=== PATIENT | male | born 1935 | race Caucasian/White ===

== ENCOUNTER 2022-04-19 02:54 | Inpatient (IN) | payer MEDICARE, OTHER ==
[~2022-04-19] VITALS: Ht 160 cm; Wt 42.2 kg
--- NOTE | 2022-04-19 03:08 | NUR ---
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 WAS JUST DC'D FROM [facility] YESTERDAY WAS ADMITTTED FOR 12DAYS. PATIENT IN BED 06 ON MONITOR AND POX AWAITING MD MONCADA.
--- NOTE | 2022-04-19 03:14 | NUR ---
BLOOD COLLECTED AND SENT TO LAB
--- NOTE | 2022-04-19 03:15 | NUR ---
COVID ANTIGEN DONE AND SENT TO LAB
--- NOTE | 2022-04-19 03:21 | NUR ---
MANAGER BOOK AT PT'S BEDSIDE
[2022-04-19 03:24] LABS: BASOPHILS # (AUTO) 0.1 K/uL (0.0-0.2); BASOPHILS % (AUTO) 0.6 % (0.0-2.0); EOSINOPHILS % (AUTO) 0.8 % (0.0-6.0); HEMATOCRIT 37 % (39-51); HEMOGLOBIN 11.3 g/dL (13.5-17.5); LYMPHOCYTES # (AUTO) 1.4 K/uL (0.8-4.8); LYMPHOCYTES % (AUTO) 13.4 % (20.0-44.0); MEAN CORPUSCULAR HGB CONC 31 g/dl (31.0-36.0); MEAN CORPUSCULAR VOLUME 80 fL (80-96); MONOCYTES # (AUTO) 0.9 K/uL (0.1-1.30); MONOCYTES % (AUTO) 8.3 % (2.0-12.0); NEUTROPHILS % (AUTO) 76.9 % (43.0-81.0); PLATELET COUNT (AUTO) 237 K/uL (150-450); WHITE BLOOD COUNT (AUTO) 10.4 K/uL (4.3-11.0)
[2022-04-19 03:28] LABS: CALCIUM, SERUM 9.4 mg/dL (8.5-10.1); CARBON DIOXIDE 30 mmol/L (21-32); CHLORIDE 95 mmol/L (98-107); CREATININE 0.7 mg/dL (0.6-1.3); GLUCOSE 157 mg/dL (74-106); POTASSIUM 3.9 mmol/L (3.5-5.1); SODIUM SERUM 133 mmol/L (136-145); UREA NITROGEN, BLOOD 16 mg/dL (7-18)
[2022-04-19 03:34] LABS: ALANINE AMINOTRANSFERASE 20 U/L (12-78); ALBUMIN 3.9 g/dL (3.4-5.0); ALKALINE PHOSPHATASE 63 U/L (46-116); ASPARTATE AMINOTRANSFERASE 33 U/L (15-37); BILIRUBIN,DIRECT 0.1 mg/dL (0.0-0.2); BILIRUBIN,TOTAL 0.2 mg/dL (0.2-1.0); TOTAL PROTEIN, SERUM 7.8 g/dL (6.4-8.2)
[2022-04-19] MEDS ORDERED: LIDOCAINE 1%-EPI 1:100,000 20 ML VIAL ONE (03:39)
[2022-04-19] MEDS ORDERED: MORPHINE SULFATE INJ 2 MG/ML DISP.SYRIN ONE (03:39)
--- NOTE | 2022-04-19 04:03 | NUR ---
COMPUTER SCIENCES PROFESSOR AT PT'S BEDSIDE FOR CHEST TUBE PLACEMENT
--- NOTE | 2022-04-19 04:03 | NUR ---
Note claudio in EDM - 04/19/22 at 0406 by CHAN LEFT CHEST TUBE INSERTION: PT SIGNED CONSENT FORM AND VERBALIZED UNDERSTANDING. DR. JOHAN GUZMAN AT PT'S BEDSIDE. 10FR PIGTAIL INSERTED TO LEFT CHEST; CONNECTED TO SUCTION. PT TOLERATED PROCEDURE WELL. VSS. SATTING 100% ON 5L SIMPLE MASK. WILL CONTINUE TO MONITOR.
--- NOTE | 2022-04-19 04:10 | NUR ---
MOVE SHEET SUBMITTED
--- NOTE | 2022-04-19 04:14 | NUR ---
ANA PAULA CALLED. UM NURSE DR FORMAN
[2022-04-19] MEDS ORDERED: MORPHINE SULFATE INJ 2 MG/ML DISP.SYRIN IV ONE (04:30)
[2022-04-19] MEDS ORDERED: IV NS 0.9% 500 ML BAG IV ONE (04:30)
--- NOTE | 2022-04-19 04:30 | NUR ---
DR. PRADO DO ON PHONECALL WITH YAA ZIMMERMAN [facility]
--- NOTE | 2022-04-19 04:33 | NUR ---
UPDATED RONN (SON) [phone] REGARDING PT'S CONDITION OF CHEST TUBE & ADMISSION
[2022-04-19] MEDS ORDERED: ACETAMINOPHEN 325 MG TABLET PO PRN ×2 (06:00→10:00)
[2022-04-19] MEDS ORDERED: ONDANSETRON HCL/PF 4 MG/2 ML VIAL IVP PRN (06:00)
[2022-04-19] MEDS ORDERED: CELE100C98 PO (07:05)
[2022-04-19] MEDS ORDERED: FLUT1BLS INH (07:05)
[2022-04-19] MEDS ORDERED: OMEP40CA21 PO (07:05)
[2022-04-19] MEDS ORDERED: METO25TA20 PO (07:05)
[2022-04-19] MEDS ORDERED: GENTAMICIN OPTH SOLN 0.3% 5 ML BOTTLE ONE (07:47)
[2022-04-19] MEDS ORDERED: FERR324T PO (08:07)
[2022-04-19] MEDS ORDERED: ALBU8.5H8 INH (08:07)
[2022-04-19] MEDS ORDERED: ACET325T53 PO (08:07)
--- NOTE | 2022-04-19 08:10 | NUR ---
report given to sherin acharya for tadeo
--- NOTE | 2022-04-19 08:39 | NUR ---
wheeled patient via gurney accompanied by RN and emt in no distress. RN assigned at bedside to assume care.
[2022-04-19 09:04] VITALS: BP 116/66
--- NOTE | 2022-04-19 09:30 | NUR ---
telephone information clerk note dr martínez at bedside notified that in in water seal chamber noted bubbling as liking indicated dr martínez stated that thoracic surgeon will come to see will f\u
--- NOTE | 2022-04-19 09:30 | NUR ---
supervisor television chassis repair note received patient from er with dx lt pneumothorax under care dr Valdez rn casino porter with chest tube to suction -20 on ivf as ordered lt ac hl intact and flushed well bed in lowest and [id number] position dr martínez at bedside notified that c\o pain ,Vicodin ordered will f]x vs take belonging checked by six pack loader operator will monitor safety measure provided
[2022-04-19] MEDS: IV NS 0.9% 1,000 ML IV PRN ×2 (10:03→22:45)
[2022-04-19] MEDS ORDERED: ALBUTEROL FS 2.5 MG/0.5 ML VIAL.NEB NEB PRN (10:30)
[2022-04-19] MEDS: HYDROCODONE/APAP 5/325MG TABLET PO PRN (10:44)
[2022-04-19] MEDS: PANTOPRAZOLE 40 MG TABLET.DR PO SCH (10:46)
--- NOTE | 2022-04-19 11:30 | NUR ---
BUSINESS UNIT MANAGER NOTE RT AT BEDSIDE CHANGED TO 4L NC BY RT SATURATION 98% Addendum: 04/19/22 at 1155 by BI LONGORIA RN ALL NEEDS ATTENDED FAMILY AT BEDSIDE
[2022-04-19 12:00] VITALS: BP 104/54
--- NOTE | 2022-04-19 14:49 | NUR ---
DIRECTOR DERMATOLOGY NOTE ALL NEEDS ATTENDED WILL CONT TO MONITOR NO SOB NOTED AT THIS TIME
[2022-04-19] MEDS ORDERED: PNEUMOCOCCAL 23-VAL P-SAC VAC 0.5 ML VIAL SQ ONE (15:30)
--- NOTE | 2022-04-19 15:38 | NUR ---
telecommunications equipment installer note dr hollis thoracic surgeon at beside and check chest tube aware that water seal with bubbling and leakage stated that will check chest x ray tomorrow also changed chest tube setting to suction- 20 h20 cm suction, will monitor
[2022-04-19 16:00] VITALS: BP 110/55
--- NOTE | 2022-04-19 17:38 | NUR ---
television maintenance worker note called to radiology about ct chest stated that will be done about 9 pm, will f\u
--- NOTE | 2022-04-19 18:26 | NUR ---
ROAD TESTER NOTE RESTING IN BED, ALERT ORIENTED, ON 4 L NC ,NO SOB NOTED AT THIS TIME , WITH CHEST TUBE TO SUCTION -10 CM H20 , WITH SMALL AMT SEROUS DRAINAGE NOTED , ON IVF ORDERED, NOT IN DISTRESS, CALL LIGHT WITHIN REACH , SAFETY FALL PRECAUTION IN PLACE , WILL CONT TO MONITOR CLOSELY
[2022-04-19 20:00] VITALS: BP 107/52
--- NOTE | 2022-04-19 20:21 | NUR ---
CORRUGATOR SUPERVISOR OPENING NOTES: RECEIVED PATIENT SLEEP IN BED AROUSABLE TO VERBAL STIMULI, BED IN LOW POSITION, CALL LIGHTS WITHIN REACH, NO COMPLAIN OF PAIN AND DISCOMFORT AT THIS TIME, ON O2 INHALATION AT 4LPM SATURATING WELL, WITH IIV LINE AT LAC#18 WITH ONGOING NSS@ 75ML/HR INFUSING WELL, LEFT PIGTAIL TO CLOSE CONTAINER BASELINE AT 5ML, WITH BUBBLING AM DR WAS MADE AWARE,ON TELE [id number], TO REMAIN BEDREST, PATIENT KEPT CLEAN AND DRY ALL NEEDS MET ENDORSE TO INCOMING SHIFT.
[2022-04-20] VITALS: BP 115/47
[2022-04-20 04:00] VITALS: BP 114/48
--- NOTE | 2022-04-20 06:40 | NUR ---
5542 Reported by RN Mike that patient's chest tube got pulled out. Assessed patient immediately and he's awake and verbally responsive. Denies shortness of breath or difficulty breathing. O2 saturation noted at 100%. HOB elevated for maximum oxygenation. Dr. Helton was paged. Awaiting call back.
--- NOTE | 2022-04-20 06:45 | NUR ---
0645 Called radiology dept for stat chest xray.
--- NOTE | 2022-04-20 07:01 | NUR ---
ALARM INSTALLATION TECHNICIAN CLOSING NOTES: 117-1 [place] PATIENT SLEEP IN BED COMFORTABLY, BED IN LOW POSITION CALL LIGHTS WITHIN REACH, NO COMPLAIN OF PAIN AND DISCOMFORT AT THIS TIME, ON O2 INHALATION AT 4LPM SATURATING WELL, PATIENT ON TELE [id number], WITH IV LINE AT LAC#18 WITH ONGOING NSS@75ML/HR INFUSING WELL, PATIENT WITH LEFT LATERAL ABDOMEN PIGTAIL TO CHEST TUBE CONTAINER WAS DETACHED CHARGE NURSE MADE AWARE, NOTIFY DR GUERRIER AWAITING FOR REPLY AT-PATIENT KEPT CLEAN AND DRY ALL NEEDS MET ENDORSE TO INCOMING SHIFT.
--- NOTE | 2022-04-20 07:01 | NUR ---
RN NOTES: PATIENT WAS NOTED WITH REMOVED ABDOMINAL PIGTAIL TO CHEST WALL AT AROUND 0630, AT AROUND 0510 AM DURING PATIENT CLEANING PIGTAIL REMAINS INTACT, CHARGE NURSE MADE AWARE AND NOTIFY DR GUERRIER AWAITING FOR REPLY, , ORDERED STAT CXR, VITALS REMAIN STABLE O2 SATURATION AT 100 ON 4LPM, WILL CONTINUE TO MONITOR
--- NOTE | 2022-04-20 07:10 | NUR ---
0710 Re assessed patient, awake and verbally responsive. Cont to deny shortness of breath and difficulty breathing. O2 sat 100%. HOB for max oxygenation. Still waiting for Dr. Helton to call back. Patient is being closely monitored.
--- NOTE | 2022-04-20 07:15 | NUR ---
0715 Call radiology to follow up on chest xray. They are on the way. Endorsed to AM charge nurse for continuity of care.
[2022-04-20 07:21] LABS: BASOPHILS % (AUTO) 0.4 % (0.0-2.0); EOSINOPHILS % (AUTO) 3.3 % (0.0-6.0); HEMATOCRIT 35 % (39-51); HEMOGLOBIN 10.4 g/dL (13.5-17.5); LYMPHOCYTES # (AUTO) 0.4 K/uL (0.8-4.8); LYMPHOCYTES % (AUTO) 7.8 % (20.0-44.0); MEAN CORPUSCULAR HGB CONC 30 g/dl (31.0-36.0); MEAN CORPUSCULAR VOLUME 81 fL (80-96); MONOCYTES # (AUTO) 0.5 K/uL (0.1-1.30); MONOCYTES % (AUTO) 9.8 % (2.0-12.0); NEUTROPHILS # (AUTO) 4.2 K/uL (1.8-8.9); NEUTROPHILS % (AUTO) 78.7 % (43.0-81.0); PLATELET COUNT (AUTO) 183 K/uL (150-450); RED BLOOD CELL COUNT(AUTO) 4.32 MIL/uL (4.5-6.0); WHITE BLOOD COUNT (AUTO) 5.4 K/uL (4.3-11.0)
[2022-04-20 07:25] LABS: CALCIUM, SERUM 8.7 mg/dL (8.5-10.1); CARBON DIOXIDE 30 mmol/L (21-32); CHLORIDE 101 mmol/L (98-107); CREATININE 0.4 mg/dL (0.6-1.3); GLUCOSE 101 mg/dL (74-106); MAGNESIUM 2.2 mg/dL (1.8-2.4); PHOSPHORUS 3.6 mg/dL (2.5-4.9); POTASSIUM 4.2 mmol/L (3.5-5.1); SODIUM SERUM 134 mmol/L (136-145); UREA NITROGEN, BLOOD 11 mg/dL (7-18)
[2022-04-20 07:32] LABS: CHOLESTEROL 135 mg/dL (<200); HDL CHOLESTEROL 41 mg/dL (40-60); LDL 79 mg/dL (0-99); TRIGLYCERIDES 61 mg/dL (30-150)
--- NOTE | 2022-04-20 07:54 | NUR ---
AUDIT PRACTICE INTERN OPENING NOTE PATIENT IS AWAKE IN BED. PATIENT IS ALERT AND ORIENTED X3. PATIENT IS ON 4L O2 VIA NASAL CANNULA. PATIENT IS ON TELE MONITOR. PATIENT HAS LEFT PIGTAIL CHEST TUBE TO CONTAINER. PER REPORT FROM LEAF SORTER NURSE. PATIENT PULLED OUT PIGTAIL. CHARGE NURSE NOTIFIED. CHEST XRAY DONE. WILL FOLLWUP. PATIENT HAS NO COMPLAINTS OF PAIN OR DISCOMFORT AT THIS TIME. ALL SAFETY MEASURES IN PLACE. CALL LIGHT WITHIN REACH. BED LOCKED IN LOWEST POSITION.SIDE RAILS UP X2. WILL CONTINUE TO ASSESS THROUGHOUT SHIFT.
[2022-04-20 08:00] VITALS: BP 113/48
--- NOTE | 2022-04-20 08:05 | NUR ---
telemarketer supervisor note dr martínez notified that pigtail \chest tube came put at 0630 ,patent not in distress ,saturation 100% , no sob noted at this time, dr martínez ordered ct chest no contrast, order carried out chest xray reported to dr martínez
[2022-04-20] MEDS: PANTOPRAZOLE 40 MG TABLET.DR PO SCH (09:07)
--- NOTE | 2022-04-20 10:41 | NUR ---
agent telegrapher note rounds made all needs attended ,no sob noted on 4l nc, saturation 100%
[2022-04-20 12:00] VITALS: BP 91/48
[2022-04-20] MEDS: FERROUS SULFATE (325 MG) 325 MG/TAB TABLET PO SCH (12:53)
--- NOTE | 2022-04-20 12:58 | NUR ---
telephone plant power operator note ct chest done as ordered will f\u
--- NOTE | 2022-04-20 14:18 | NUR ---
tele marketing executive note called to radiology x2 about ct chest result, no e result available yet , stated that will f\u
--- NOTE | 2022-04-20 15:21 | NUR ---
manager telemetry note notified about result of ct chest xray. patient has no sob. patient 96% saturation on 4L nasal canula. Addendum: 04/20/22 at 1537 by BI LONGORIA RN non new order at this time due to ct chest result per dr martínez
[2022-04-20 16:23] VITALS: BP 103/50
[2022-04-20] MEDS: IV NS 0.9% 1,000 ML IV PRN (17:41)
--- NOTE | 2022-04-20 18:34 | NUR ---
SENIOR GIS ANALYST NOTE PATIENT IN BED, ALERT ORIENTED , ON 4L NC, NO SOB NOTED AT THIS TIME ,HAVING DINNER , ABLE TO EAT SELF , BED IN LOWEST AND LOCKED POSITION, NO SOB NOTED, RESPIRATION EVEN AND NONLABORED ,SATURATING 98% AT THIS TIME , CALL LIGHT WITHIN REACH SAFETY MEASURE OBSERVED Addendum: 04/20/22 at 1907 by BI LONGORIA RN PATIENT ON 2L NC AT THIS TIME NO SOB AT THIS TIME
--- NOTE | 2022-04-20 19:00 | NUR ---
RN opening notes Received Pt from morning nurse. Pt is sitting in the bed comfortably accompanied by Pt's son in law Mcrae. Pt is alert and orientedX3. Pt speaks Guamanian and able to make needs known. On 2 L NC. No SOB. No S/S of distress noted. No chest tube. Per am nurse Pt removed chest tube in the morning. MD is aware and informed. No S/S of distress noted. O2 sat is 96%. Tele monitor showed SR hr at 71. IV site at LAC# 18 is clean, intact and infusing well NS@ 75 ml/hr. Safety precautions is maintained. Bed at low position, brakes locked, side rails upX3, hob elevated, bed alarm is on and call light is within reach. Will continue to monitor.
--- NOTE | 2022-04-20 19:05 | NUR ---
RN notes L lateral dressing (from detached chest tube) is clean, intact and dry. No S/S of distress or No SOB notes.
[2022-04-20 20:00] VITALS: BP_SYST 145; BP_SYST 97; BP_DIAS 49; BP_DIAS 77
[2022-04-21] VITALS: BP 105/56
[2022-04-21 04:00] VITALS: BP 103/44
[2022-04-21] MEDS: IV NS 0.9% 1,000 ML IV PRN (06:19)
[2022-04-21] MEDS: PANTOPRAZOLE 40 MG TABLET.DR PO SCH (06:34)
--- NOTE | 2022-04-21 06:39 | NUR ---
RN closing notes Pt resting in bed comfortably. Pt is alert and orientedX3. Pt speaks Sammarinese and able to make needs known. On 2 L NC. No SOB. No No S/S of distress noted. O2 sat is 100%. Tele monitor showed SR hr at 81. IV site at LAC# 18 is clean, intact and infusing well NS@ 75 ml/hr. L lateral chest dressing is intact, clean and dry. Kept Pt clean, dry and comfortable. Safety precautions is maintained. Bed at low position, brakes locked, side rails upX3, hob elevated, bed alarm is on and call light is within reach. Will endorse to am nurse for TULIO.
[2022-04-21 07:00] LABS: BASOPHILS % (AUTO) 0.7 % (0.0-2.0); EOSINOPHILS % (AUTO) 3.7 % (0.0-6.0); HEMATOCRIT 32 % (39-51); HEMOGLOBIN 9.9 g/dL (13.5-17.5); LYMPHOCYTES # (AUTO) 0.6 K/uL (0.8-4.8); LYMPHOCYTES % (AUTO) 12.9 % (20.0-44.0); MEAN CORPUSCULAR HGB CONC 31 g/dl (31.0-36.0); MEAN CORPUSCULAR VOLUME 80 fL (80-96); MONOCYTES # (AUTO) 0.4 K/uL (0.1-1.30); NEUTROPHILS # (AUTO) 3.7 K/uL (1.8-8.9); NEUTROPHILS % (AUTO) 73.7 % (43.0-81.0); PLATELET COUNT (AUTO) 190 K/uL (150-450); RED BLOOD CELL COUNT(AUTO) 3.97 MIL/uL (4.5-6.0)
--- NOTE | 2022-04-21 07:00 | NUR ---
FOCUS PULLER OPENING NOTES. PATIENT AWAKE AND ALERT A&0X4 COLOMBIAN SPEAKING. ALL VSS. PATIENT SATTING AT 100% ON 2.5 NC. IV 18G ON L AC PATENT, INTACT AND FLUSHED. DIET CARDIAC LOW FAT. PATIENT ON MONITOR AND SPO2 MONITOR. PATIENT VOIDING INCONTINENT. PATIENT REMOVED CHEST TUBE YESTERDAY ORDERS TO CONTINUE MONITORING FOR NOW WITH FOLLOW UP CHEST X-RAY. ALL SAFETY FALL PRECAUTIONS IN PLACE BED IN LOWEST POSITION, SIDE RAILS UP, BED LOCK ON BED ALARM ON, CALL LIGHT WITHIN REACH. WILL CONTINUE TO MONITOR.
[2022-04-21 07:21] LABS: CALCIUM, SERUM 8.4 mg/dL (8.5-10.1); CARBON DIOXIDE 32 mmol/L (21-32); CHLORIDE 102 mmol/L (98-107); CREATININE 0.3 mg/dL (0.6-1.3); GLUCOSE 101 mg/dL (74-106); POTASSIUM 3.9 mmol/L (3.5-5.1); SODIUM SERUM 137 mmol/L (136-145); UREA NITROGEN, BLOOD 9 mg/dL (7-18)
--- NOTE | 2022-04-21 08:30 | NUR ---
WELDING MACHINE TENDER NOTE. PATIENT WAS CHANGED AND CLEANED LINEN WAS CHANGED. PATIENT RESTING COMFORTABLY ON THE BED HAVING BREAKFAST. ALL SAFETY FALL PRECAUTIONS IN PLACE. WILL CONTINUE TO MONITOR.
[2022-04-21] MEDS: FERROUS SULFATE (325 MG) 325 MG/TAB TABLET PO SCH (09:01)
--- NOTE | 2022-04-21 09:30 | NUR ---
MD VISIT BY DR. JUICE ORNELAS. PATIENT DOING WELL AND MAY GO HOME SOON. FAMILY EVOLVEMENT NEEDED PATIENT VERY FRAIL. DAUGHTER AND SON IN-[place] ARE READY TO HELP.
--- NOTE | 2022-04-21 18:51 | NUR ---
RN CLOSING NOTES. PATIENT RESTING COMFORTABLY ON BED. ALERT AND AWAKE A&OX4. ALL VSS. PATIENT SATTING AT 100% ON 2.5 L NC. SR ON MONITOR. NO CURRENT SIGNS OF DISTRESS. IV LAC 18G PATENT, INTACT AND FLUSHED RUNNING NS 0.9% NS @75MLS/HR. DIET CARDIAC. SAFETY FALL PRECAUTIONS IN PLACE BED IN LOWEST POSITION, SIDE RAILS UP, BED LOCK ON, BED ALARM ON, CALL LIGHT WITHIN REACH.
--- NOTE | 2022-04-21 19:45 | NUR ---
RN NOTE RECEIVED PT IN BED, WITH FAMILY AT BEDSIDE. PT ON 2.5L O2 VIA NC, O2 SAT AT 99-100%. NOT IN ANY DISTRESS. PT DENIES PAIN OR SOB. SR ON TELE MONITOR WITH HR 63. ON IVF NS AT 75ML/HR, INFUSING WELL. WILL CONTINUE TO MONITOR.
[2022-04-21 20:00] VITALS: BP 115/53
[2022-04-22] VITALS: BP 116/52
[2022-04-22] MEDS: HYDROCODONE/APAP 5/325MG TABLET PO PRN (01:26)
[2022-04-22 04:00] VITALS: BP 148/56
--- NOTE | 2022-04-22 06:55 | NUR ---
RN NOTE PT SLEEPING, AROUSES EASILY. NO SIGNIFICANT CHANGES NOTED. TITRATED O2 TO 2L VIA NC. TOLERATES WELL. NOT IN ANY DISTRESS. DENIES ANY SOB OR PAIN. LAC IV LEAKING, NEW IV LINE INSERTED ON LFA 22G, GOOD BLOOD RETURN, FLUSHES WELL. CONTINUE WITH NS AT 75ML/HR. ALL NEEDS ATTENDED. WILL ENDORSE TO NEXT SHIFT NURSE FOR TULIO.
[2022-04-22 08:00] VITALS: BP 117/45
[2022-04-22] MEDS: FERROUS SULFATE (325 MG) 325 MG/TAB TABLET PO SCH (08:03)
[2022-04-22] MEDS: PANTOPRAZOLE 40 MG TABLET.DR PO SCH (08:03)
--- NOTE | 2022-04-22 08:08 | NUR ---
BALL FRINGE MACHINE OPERATOR OPENING NOTE PATIENT AWAKE, ALERT AND ORIENTED X4. BAHRAINI SPEAKING.PATIENT OXYGEN SATURATION 99% ON 2L VIA NASAL CANNULA. PATIENT HAS OLD CHEST TUBE SITE ON LEFT SIDE OF CHEST. PATIENT ON CARDIAC DIET.SKIN INTACT.NORMAL SALINE AT 75ML/HR.ALL SAFETY FALL PRECAUTIONS IN PLACE BED IN LOWEST POSITION, SIDE RAILS UP, BED LOCKED, CALL LIGHT WITHIN REACH. WILL CONTINUE TO ASSESS THROUGHOUT SHIFT
[2022-04-22] MEDS: IV NS 0.9% 1,000 ML IV PRN (09:21)
[2022-04-22 12:00] VITALS: BP 101/46
--- NOTE | 2022-04-22 13:04 | NUR ---
dario acharya note patient daughter at bedside Addendum: 04/22/22 at 1911 by MIO HUTCHINS RN ever at bedside
[2022-04-22 16:00] VITALS: BP 108/51
--- NOTE | 2022-04-22 19:11 | NUR ---
clerk telegraph service closing note PATIENT REMAINS IN BED. PATIENT IS RESTING COMFORTABLY. NO SIGNS OF DISTRESS. PATIENT IS ON 96% VIA 2-2.5L NASAL CANNULA. PATIENT IS ALERT AND ORIENTED X4. CITIZEN OF [place] SPEAKING ONLY. PATIENT IS ON TELE MONITOR CURRENTLY SINUS RHYTHM 60-90S.PATIENT HAS OLD CHEST TUBE SIDE ON LEFT LATERAL CHEST. PATIENT COMPLAINS OF NO PAIN. PATIENT ON CARDIAC DIET. PATIENT HAS LEFT FOREARM 22 GAUGE. IV PATENT AND FLUSHING WELL. CURRENTLY RUNNING NORMAL SALINE @ 75ML/HR.PATIENT HAS DIAPER. KEPT CLEAN AND DRY. ALL SAFETY MEASURES IN PLACE. BED LOCKED IN LOWEST POSITION. CALL LIGHT WITHIN REACH. BEDSIDE TABLE NEXT TO PATIENT.
--- NOTE | 2022-04-22 19:45 | NUR ---
PROTOTYPE FABRICATOR OPENING NOTES RECEIVED PATIENT IN BED. PATIENT IS RESTING COMFORTABLY. NO SIGNS OF DISTRESS. PATIENT IS ON O2 VIA NASAL CANNULA 2LPM. PATIENT IS ALERT AND ORIENTED X4. MOHAWK SPEAKING ONLY. PATIENT IS ON TELE MONITOR CURRENTLY SINUS RHYTHM 60-90S.PATIENT HAS OLD CHEST TUBE SIDE ON LEFT LATERAL CHEST. PATIENT COMPLAINS OF NO PAIN. PATIENT HAS LEFT FOREARM 22 GAUGE. IV PATENT AND FLUSHING WELL. CURRENTLY RUNNING NORMAL SALINE @ 75ML/HR.FAMLIY ON BEDSIDE. ALL SAFETY MEASURES IN PLACE. BED LOCKED IN LOWEST POSITION. CALL LIGHT WITHIN REACH. WILL CONTINUE TO MONITOR THROUGHOUT THE SHIFT.
--- NOTE | 2022-04-22 19:51 | NUR ---
RT RECEIVED PT ON 1LNC, SAT 97%. NO RESP DISTRESS OR SOB. HR 76, TOLERATING WELL. Addendum: 04/22/22 at 1953 by Jerzy Hung RT Amended: Links added.
[2022-04-22 20:00] VITALS: BP 119/59
[2022-04-23] VITALS: BP 99/45
[2022-04-23] MEDS: IV NS 0.9% 1,000 ML IV PRN ×2 (01:14→22:00)
[2022-04-23 04:00] VITALS: BP 123/65
--- NOTE | 2022-04-23 07:28 | NUR ---
EDGE DRUMMER OPENING NOTES PATIENT REMAINS IN BED RESTING COMFORTABLY. NO SIGNS OF DISTRESS. PATIENT IS ON O2 VIA NASAL CANNULA 2LPM. PATIENT IS ALERT AND ORIENTED X4. CYMRO SPEAKING ONLY. PATIENT IS ON TELE MONITOR CURRENTLY SINUS RHYTHM 60-90S.PATIENT HAS OLD CHEST TUBE SIDE ON LEFT LATERAL CHEST. PATIENT COMPLAINS OF NO PAIN. PATIENT HAS LEFT FOREARM 22 GAUGE. IV PATENT AND FLUSHING WELL. CURRENTLY RUNNING NORMAL SALINE @ 75ML/HR. ALL SAFETY MEASURES IN PLACE. ALL NEEDS ATTENDED, BED LOCKED IN LOWEST POSITION. CALL LIGHT WITHIN REACH. WILL ENDORSE TO AM SHIFT NURSE.
--- NOTE | 2022-04-23 07:30 | NUR ---
SECURITY OFFICER SUPERVISOR OPENING NOTE PATIENT AWAKE, ALERT AND ORIENTED X4. QATARI SPEAKING.PATIENT OXYGEN SATURATION 99% ON 2L VIA NASAL CANNULA. PATIENT HAS OLD CHEST TUBE SITE ON LEFT SIDE OF CHEST. PATIENT ON CARDIAC DIET.SKIN INTACT.IV SITE PATENT AND FLUSHING WELL. PATIENT HAS LOW URINE OUTPUT. NORMAL SALINE AT 75ML/HR.ALL SAFETY FALL PRECAUTIONS IN PLACE BED IN LOWEST POSITION, SIDE RAILS UP, BED LOCKED, CALL LIGHT WITHIN REACH. WILL CONTINUE TO ASSESS THROUGHOUT SHIFT
[2022-04-23] MEDS: PANTOPRAZOLE 40 MG TABLET.DR PO SCH (07:42)
[2022-04-23 08:00] VITALS: BP 108/54
[2022-04-23] MEDS: FERROUS SULFATE (325 MG) 325 MG/TAB TABLET PO SCH (08:51)
--- NOTE | 2022-04-23 11:00 | NUR ---
PEDIATRIC PATHOLOGIST NOTE PATIENT COMPLAINING OF LOW URINE OUTPUT, PAIN,BURNING WHILE URINATING. DID BLADDER SCANNER AND IT WAS 200 ML. NOTIFIED MADE AWARE. WILL FOLLOW UP
[2022-04-23 12:00] VITALS: BP 118/63
--- NOTE | 2022-04-23 14:47 | NUR ---
SEARCH CONSULTANT NOTE FAMILY AT BEDSIDE
--- NOTE | 2022-04-23 14:51 | NUR ---
FAMILY AT BEDSIDE
[2022-04-23 16:00] VITALS: BP 102/59
[2022-04-23] MEDS: HYDROCODONE/APAP 5/325MG TABLET PO PRN (18:53)
--- NOTE | 2022-04-23 19:27 | NUR ---
FAMILY AT BEDSIDE
--- NOTE | 2022-04-23 19:27 | NUR ---
PUBLIC SAFETY TELECOMMUNICATOR CLOSING NOTE PATIENT AWAKE, ALERT AND ORIENTED X4. DANISH SPEAKING.ABLE TO MAKE NEEDS KNOWN.PATIENT OXYGEN SATURATION ABOVE 95% ON 2L VIA NASAL CANNULA. TOLERATING WELL.PATIENT IS ON TELE MONITOR CURRENTLY SINUS RHYTHM.PATIENT HAS OLD CHEST TUBE SITE ON LEFT SIDE OF CHEST. PATIENT ON CARDIAC DIET.SKIN INTACT.IV SITE PATENT AND FLUSHING WELL. PATIENT HAS LOW URINE OUTPUT. NORMAL SALINE AT 75ML/HR.PATIENT HAS LEFT FOREARM 22 GAUGE. ALL SAFETY MEASURES IN PLACE. BED LOCKED IN LOWEST POSITION, SIDE RAILS UP, BED LOCKED, CALL LIGHT WITHIN REACH.
--- NOTE | 2022-04-23 19:30 | NUR ---
INSPECTOR PAPER PRODUCTS OPENING NOTES RECEIVED PATIENT IN BED. A/O X4, SAMI SPEAKING ONLY. NO SIGNS OF DISTRESS. PATIENT IS ON O2 VIA NASAL CANNULA 2LPM. PATIENT IS ON TELE MONITOR CURRENTLY SINUS RHYTHM. PATIENT HAS OLD CHEST TUBE SIDE ON LEFT LATERAL CHEST. NO COMPLAINTS OF PAIN AT THIS TIME. PATIENT HAS LEFT FOREARM 22 GAUGE RUNNING NS @ 75ML/HR. FAMILY ON BEDSIDE. ALL SAFETY MEASURES IN PLACE. BED LOCKED AND IN LOWEST POSITION. CALL LIGHT WITHIN REACH. WILL CONTINUE TO MONITOR THROUGHOUT THE SHIFT.
[2022-04-23 20:00] VITALS: BP 103/48
[2022-04-24] VITALS: BP 115/55
[2022-04-24 04:00] VITALS: BP 120/52
--- NOTE | 2022-04-24 06:45 | NUR ---
FINE GRADER CLOSING NOTES PATIENT REMAINS IN BED RESTING COMFORTABLY. NO SIGNS OF DISTRESS. PATIENT IS ON O2 VIA NASAL CANNULA 2LPM. PATIENT IS ALERT AND ORIENTED X4. MONTSERRATIAN SPEAKING ONLY. PATIENT IS ON TELE MONITOR CURRENTLY SINUS RHYTHM 68 BPM.PATIENT HAS OLD CHEST TUBE SIDE ON LEFT LATERAL CHEST. PATIENT HAS LEFT FOREARM 22 GAUGE. IV PATENT AND FLUSHING WELL. CURRENTLY RUNNING NORMAL SALINE @ 75ML/HR. ALL SAFETY MEASURES IN PLACE. ALL NEEDS ATTENDED, KEPT DRY AND CLEAN, BED LOCKED IN LOWEST POSITION. CALL LIGHT WITHIN REACH. WILL ENDORSE TO AM SHIFT NURSE.
--- NOTE | 2022-04-24 07:29 | NUR ---
CLOCKMAKER APPRENTICE OPENING NOTES RECEIVED PT IN BED AWAKE EATING BREAKFAST. PT A/O X4, LIBYAN SPEAKING. ABLE TO MAKE NEEDS KNOWN. ON O2 AT 2L/MIN VIA NASAL CANNULA, TOLERATING WELL. BREATHING UNLABORED. NOT IN ANY SIGN OF RESPIRATORY DISTRESS. ON CARDIAC TELE MONITOR WITH CURRENT READING OF SINUS RHYTHM, HR 72. NO C/O CARDIAC DISTRESS VOICED AT THIS TIME. IV ACCESS IN LFA G#20 INTACT AND PATENT WITH NS INFUSING AT 75ML/HR. SAFETY MEASURES IN PLACE: BED IN LOWEST AND LOCKED POSITION, SIDE RAILS UPX2, AND CALL LIGHT WITHIN REACH. WILL CONTINUE TO MONITOR PT.
[2022-04-24 08:00] VITALS: BP 117/59
[2022-04-24] MEDS: FERROUS SULFATE (325 MG) 325 MG/TAB TABLET PO SCH (08:05)
[2022-04-24] MEDS: PANTOPRAZOLE 40 MG TABLET.DR PO SCH (08:05)
--- NOTE | 2022-04-24 11:50 | NUR ---
COW BUYER NOTES PT DISCHARGED TO HOME IN STABLE CONDITION. PT A/O X4, ABLE TO MAKE NEEDS KNOWN. ON RA, TOLERATING WELL WITH SPO2 95%. BREATHING UNLABORED. NOT IN ANY SIGN OF RESPIRATORY DISTRESS. VITAL SIGNS TAKEN, STABLE, AND RECORDED. SKIN IS INTACT WITH NO SKIN ISSUES NOTED. ALL BELONGINGS ACCOUNTED FOR. DISCHARGED INSTRUCTIONS AND HEALTH TEACHINGS GIVEN TO PT AND PT VERBALIZED UNDERSTANDING. IV ACCESS IN LFA G #20 REMOVED WITH NO ACTIVE BLEEDING NOTED. DRY PRESSURE DRESSING APPLIED AT SITE. PT LEFT THE UNIT AT 1140 VIA WHEELCHAIR ACCOMPANIED BY SVETA SANTOS WITH PT'S DAUGHTER. AND CHARGED NURSE AWARE OF DISCHARGED.
== END 2022-04-24 13:37 | disposition home or self-care (01) | DRG 190 ==
LOC: ER 02:57 → TRANSITION 05:30 → TELE1 08:07
PROVIDERS: ADMIT Internal Medicine; ATTEND Internal Medicine
DX: J43.9 Emphysema, unspecified (principal); J96.01 Acute respiratory failure with hypoxia; J93.12 Secondary spontaneous pneumothorax; E87.1 Hypo-osmolality and hyponatremia; J98.11 Atelectasis; J84.9 Interstitial pulmonary disease, unspecified; R64 Cachexia; J45.909 Unspecified asthma, uncomplicated; Z20.822 Contact with and (suspected) exposure to COVID-19; E86.1 Hypovolemia; Z79.51 Long term (current) use of inhaled steroids; Z79.899 Other long term (current) drug therapy; D50.9 Iron deficiency anemia, unspecified; Z87.891 Personal history of nicotine dependence; I10 Essential (primary) hypertension
CPT/HCPCS: 32551; 36415; 71045-TC; 71250-TC; 80048-TC; 80061-TC; 80076-TC; 83735-TC; 84100-TC; 84484-TC; 85025-TC; 85730-TC; 87081-TC; 90732; 94799-TC; A6403; C9803; G0378; J2270; J2405; J3490; J7030; J7040

== ENCOUNTER 2022-04-24 13:39 | Inpatient (IN) | payer MEDICARE, OTHER ==
[~2022-04-24] VITALS: Ht 160 cm; Wt 41.7 kg
[~2022-04-24 13:39] MED LIST: ACET325T53 PO; ALBU8.5H8 INH; FERR324T PO; OMEP40CA21 PO
--- NOTE | 2022-04-24 13:45 | NUR ---
seen by DR Lucila MCNEAL
--- NOTE | 2022-04-24 13:50 | NUR ---
RECEIVED MD 87 YRS MALE FROM home AC/O SOB SATRTED THIS MORNING PT HX OF COPD D/C home [facility] from [facility] o2 sat 85 ^% with fio2 2 lnc
[2022-04-24] MEDS ORDERED: IPRATROPIUM NEB FS 0.5 MG/2.5 ML AMPUL.NEB NEB ONE (14:00)
[2022-04-24] MEDS ORDERED: ALBUTEROL FS 2.5 MG/3 ML VIAL.NEB NEB ONE (14:00)
--- NOTE | 2022-04-24 14:00 | NUR ---
BLOOD DROW AND SENT TO LAB AND BLOOD CULTURE X2 SENT
[2022-04-24 14:34] LABS: BASOPHILS # (AUTO) 0.1 K/uL (0.0-0.2); BASOPHILS % (AUTO) 0.5 % (0.0-2.0); HEMATOCRIT 34 % (39-51); HEMOGLOBIN 10.3 g/dL (13.5-17.5); LYMPHOCYTES # (AUTO) 0.5 K/uL (0.8-4.8); MEAN CORPUSCULAR HGB CONC 31 g/dl (31.0-36.0); MEAN CORPUSCULAR VOLUME 81 fL (80-96); MONOCYTES # (AUTO) 0.9 K/uL (0.1-1.30); MONOCYTES % (AUTO) 7.9 % (2.0-12.0); NEUTROPHILS # (AUTO) 9.2 K/uL (1.8-8.9); NEUTROPHILS % (AUTO) 85.6 % (43.0-81.0); PLATELET COUNT (AUTO) 255 K/uL (150-450); RED BLOOD CELL COUNT(AUTO) 4.16 MIL/uL (4.5-6.0); WHITE BLOOD COUNT (AUTO) 10.8 K/uL (4.3-11.0)
[2022-04-24] MEDS ORDERED: IPRATROPIUM NEB FS 0.5 MG/2.5 ML AMPUL.NEB ONE (14:37)
[2022-04-24] MEDS ORDERED: ALBUTEROL FS 2.5 MG/3 ML VIAL.NEB ONE (14:37)
--- NOTE | 2022-04-24 14:39 | NUR ---
RT AT BEDSIDE
[2022-04-24 14:51] LABS: CALCIUM, SERUM 8.7 mg/dL (8.5-10.1); CARBON DIOXIDE 28 mmol/L (21-32); CHLORIDE 100 mmol/L (98-107); CREATININE 0.5 mg/dL (0.6-1.3); GLUCOSE 148 mg/dL (74-106); POTASSIUM 3.7 mmol/L (3.5-5.1); SODIUM SERUM 135 mmol/L (136-145); UREA NITROGEN, BLOOD 14 mg/dL (7-18)
[2022-04-24 14:58] LABS: ALANINE AMINOTRANSFERASE 21 U/L (12-78); ALBUMIN 3.4 g/dL (3.4-5.0); ALKALINE PHOSPHATASE 58 U/L (46-116); ASPARTATE AMINOTRANSFERASE 21 U/L (15-37); BILIRUBIN,DIRECT 0.1 mg/dL (0.0-0.2); BILIRUBIN,TOTAL 0.3 mg/dL (0.2-1.0); TOTAL PROTEIN, SERUM 7.4 g/dL (6.4-8.2)
[2022-04-24 15:03] LABS: ABG BASE EXCESS -0.3 mmol/L; ABG PCO2 42.6 mmHg (35.0-45.0); ABG PH 7.384 (7.350-7.450); ABG PO2 112.7 mmHg (75.0-100.0); COHb 0.3 % (0.5-1.5); MetHb 0.4 % (0.0-1.5); O2Hb 97.7 % (94.0-97.0); SITE, ABG Right Radial; VENT MODE, BG NRB
--- NOTE | 2022-04-24 15:14 | NUR ---
ELIJAH OROSCO DONE AND SENT TO LAB
--- NOTE | 2022-04-24 15:21 | NUR ---
HHN TX GIVEN BY RT
[2022-04-24] MEDS ORDERED: PROPOFOL 200 MG/20 ML VIAL IV ONE (15:30)
[2022-04-24] MEDS ORDERED: PROPOFOL 20 ML IV ONE (15:35)
[2022-04-24 15:41] LABS: BAND % (MANUAL) 1 % (0.0-5.0); EOSINOPHILS % (MANUAL) 1 % (0-4); LYMPHOCYTES % (MANUAL) 8 % (16-48); MONOCYTES % (MANUAL) 5 % (0-11.0)
[2022-04-24 15:42] LABS: NEUTROPHILS % (MANUAL) 85 (42-76)
--- NOTE | 2022-04-24 15:45 | NUR ---
Consent for chest tube was obtained-signed by the patient's daughter The procedure was explained by the ER physician to the patient's daughter, who verbalized understanding of care
--- NOTE | 2022-04-24 15:45 | NUR ---
Chest tube-left lateral chest wall; to dimitry
--- NOTE | 2022-04-24 15:50 | NUR ---
DR. MCNEAL AT BED SIDE INSERTED CHEST TUB ON LT CHEST FR # 32 PT TOLORATED PTOCEURE WILL
--- NOTE | 2022-04-24 15:51 | NUR ---
Chest tube successfully inserted-left lateral chest wall Moderate sedation ended
--- NOTE | 2022-04-24 15:52 | NUR ---
Intravenous fluids NS 1 L given IV bolus x1 per Dr. Vasquez
[2022-04-24] MEDS ORDERED: IV NS 0.9% 1,000 ML BAG IV ONE (16:00)
[2022-04-24] MEDS ORDERED: Z GUARD REMEDY 4 OZ OINT TP PRN (16:00)
--- NOTE | 2022-04-24 16:15 | NUR ---
Intravenous IV and time documentation #1 NS 1 L IV bolus: Start time: 1600 end time: 1700 IV site: Right hand, PIV #20 Port #1
--- NOTE | 2022-04-24 16:21 | NUR ---
ROOM 116-2
--- NOTE | 2022-04-24 16:43 | NUR ---
HAND OFF TO AUDRA VALENTIN TO ROOM 112-1
--- NOTE | 2022-04-24 16:45 | NUR ---
TO ROOM 116-2 VIA MKCENZIE PT AWAKE AND FALLOW COMMOND NO SOB
--- NOTE | 2022-04-24 16:49 | NUR ---
TO ROOM 116-2 STABLE VS WITH CG=HEST TUBE INTACT AND INPLACE
[2022-04-24] MEDS ORDERED: ENOXAPARIN SODIUM 40 MG/0.4 ML DISP.SYRIN SQ ONE (17:06)
[2022-04-24] MEDS: ENOXAPARIN SODIUM 40 MG/0.4 ML DISP.SYRIN SQ SCH (17:10)
--- NOTE | 2022-04-24 18:00 | NUR ---
ADMISSION RN NOTES ADMITTED A 87 Y/O MALE TO UNIT AT 1725 VIA GURNEY ACCOMPANIED BY Keyanna NURSE WITH DX OF LEFT SIDED PNEUMOTHORAX. PATIENT IS ALERT AND ORIENTED X4, ALBANIAN SPEAKING. LABOR SUPERVISOR AVAILABLE NEEDED. PT ABLE TO MAKE NEEDS KNOWN. PT ORIENTED TO STAFF AND UNIT. V/S TAKEN AND RECORDED. PT ON O2 AT 5L/MIN VIA NASAL CANNULA, TOLERATING WELL. PT HAS CHEST TUBE IN THE LEFT SIDE IN PLACE AND INTACT. NO SOB NOTED AT THIS TIME. NOT IN ANY SIGN OF RESPIRATORY DISTRESS. PT PLACED ON CARDIAC TELE MONITOR WITH CURRENT READING OF NORMAL SINUS RHYTHM, HR 80. NO C/O OF CARDIAC DISTRESS VOICED AT THIS TIME. ABDOMEN SOFT, NON-TENDER, AND NON-DISTENDED. BOWEL SOUNDS PRESENT IN ALL FOUR QUADRANTS. SKIN IS INTACT, DRY, AND WARM. NO SKIN ISSUES NOTED. IV ACCESS ON R HAND G #20 SALINE LOCK, INTACT AND PATENT. SAFETY MEASURES INITIATED: BED IN LOWEST AND LOCKED POSITION, BED ALARM ON, SIDE RAILS UP X2, AND CALL LIGHT WITHIN REACH. WILL CONTINUE TO MONITOR PT.
--- NOTE | 2022-04-24 19:09 | NUR ---
RETAIL BRAND AMBASSADOR CLOSING NOTE PT IN BED AWAKE. PATIENT IS ALERT AND ORIENTED X4, ABLE TO MAKE NEEDS KNOWN. PT ON O2 AT 5L/MIN VIA NASAL CANNULA, TOLERATING WELL. PT HAS CHEST TUBE IN THE LEFT SIDE IN PLACE AND INTACT. NO SOB NOTED AT THIS TIME. NOT IN ANY SIGN OF RESPIRATORY DISTRESS. ON CARDIAC TELE MONITOR WITH CURRENT READING OF NORMAL SINUS RHYTHM, HR 85. NO C/O OF CARDIAC DISTRESS VOICED AT THIS TIME. IV ACCESS ON R HAND G #20 SALINE LOCK, INTACT AND PATENT. ALL NEEDS ATTENDED. KEPT CLEAN AND COMFORTABLE. SAFETY MEASURES INITIATED: BED IN LOWEST AND LOCKED POSITION, BED ALARM ON, SIDE RAILS UP X2, AND CALL LIGHT WITHIN REACH. WILL ENDORSE TO BENCH SHEAR OPERATOR NURSE FOR TULIO.
--- NOTE | 2022-04-24 19:40 | NUR ---
SALES ORDER SPECIALIST NOTE PT IN BED AWAKE, A/O X4, ON O2 AT 5L/MIN VIA NASAL CANNULA, NO SOB/ACUTE DISTRESS NOTED, LEFT SIDED CHEST TUBE IN PLACE, NO DRAINAGE NOTED, NO S/S OF ANY RESPIRATORY DISTRESS, NORMAL SINUS RHYTHM IN TELE MONITOR WITH HR 80S, IV ACCESS ON R HAND G #20 SALINE LOCK, PATENT AND INTACT, ALL NEEDS ATTENDED, ALL SAFETY MEASURES IN PLACE, BED LOCKED AND LOWEST POSITION, BED ALARM ON, SIDE RAILS UP X2, CALL LIGHT WITHIN REACH, WILL CONTINUE TO MONITOR CLOSELY.
[2022-04-24 20:00] VITALS: BP 112/60
[2022-04-24] MEDS: ACETAMINOPHEN 325 MG TABLET PO PRN (20:06)
[2022-04-24] MEDS: ALBUTEROL FS 2.5 MG/0.5 ML VIAL.NEB NEB SCH ×2 (20:15→23:50)
[2022-04-25] VITALS: BP 124/52
[2022-04-25 04:00] VITALS: BP 149/61
[2022-04-25] MEDS: ALBUTEROL FS 2.5 MG/0.5 ML VIAL.NEB NEB SCH ×6 (04:22→23:11)
--- NOTE | 2022-04-25 07:20 | NUR ---
RN CLOSING NOTE PT IN BED AWAKE, A/O X4, [place] SPEAKING, ON O2 AT 5L/MIN VIA NASAL CANNULA, NO SOB/ACUTE DISTRESS NOTED, LEFT SIDED CHEST TUBE IN PLACE, 60ML BLOODY DRAINAGE, NORMAL SINUS RHYTHM IN TELE MONITOR WITH HR 70-80S, IV ACCESS ON R HAND G #20 SALINE LOCK, PATENT AND INTACT, ALL NEEDS ATTENDED, NO SIGNIFICANT CHANGE IN CONDITION DURING THE NIGHT, BED LOCKED AND LOWEST POSITION, BED ALARM ON, SIDE RAILS UP X2, CALL LIGHT WITHIN REACH, ENDORSED TO SULY VALENTIN FOR CONTINUATION OF CARE.
--- NOTE | 2022-04-25 07:36 | NUR ---
RN OPENING NOTE PATIENT IN BED AWAKE, A/O X4, ON O2 AT 5L/MIN VIA NASAL CANNULA, NO SOB/ACUTE DISTRESS NOTED, LEFT SIDED CHEST TUBE IN PLACE, DRAINING RED FLUID, 60 MLS DURING NIGHTSHIFT. NO S/S OF ANY RESPIRATORY DISTRESS, NORMAL SINUS RHYTHM IN TELE MONITOR WITH HR 80S, IV ACCESS ON R HAND G #20 SALINE LOCK, PATENT AND INTACT. DIAPER NOTED, MEPLILEX IN PLACE TO PROTECT MARISEL PROMINENCES. ALL SAFETY MEASURES IN PLACE, BED LOCKED AND LOWEST POSITION, BED ALARM ON, SIDE RAILS UP X2, CALL LIGHT WITHIN REACH, WILL CONTINUE PLAN OF CARE AND ANTICIPATE NEEDS.
[2022-04-25 08:00] VITALS: BP 98/52
[2022-04-25 08:45] LABS: ALANINE AMINOTRANSFERASE 17 U/L (12-78); ALKALINE PHOSPHATASE 55 U/L (46-116); ASPARTATE AMINOTRANSFERASE 20 U/L (15-37); BILIRUBIN,TOTAL 0.3 mg/dL (0.2-1.0); CALCIUM, SERUM 8.2 mg/dL (8.5-10.1); CARBON DIOXIDE 29 mmol/L (21-32); CHLORIDE 101 mmol/L (98-107); CREATININE 0.4 mg/dL (0.6-1.3); GLUCOSE 96 mg/dL (74-106); MAGNESIUM 2.1 mg/dL (1.8-2.4); PHOSPHORUS 3.5 mg/dL (2.5-4.9); POTASSIUM 3.5 mmol/L (3.5-5.1); SODIUM SERUM 138 mmol/L (136-145); TOTAL PROTEIN, SERUM 6.6 g/dL (6.4-8.2); UREA NITROGEN, BLOOD 12 mg/dL (7-18)
[2022-04-25 11:20] LABS: BASOPHILS % (AUTO) 0.7 % (0.0-2.0); EOSINOPHILS % (AUTO) 1.1 % (0.0-6.0); HEMATOCRIT 31 % (39-51); HEMOGLOBIN 9.6 g/dL (13.5-17.5); LYMPHOCYTES # (AUTO) 0.6 K/uL (0.8-4.8); LYMPHOCYTES % (AUTO) 9.5 % (20.0-44.0); MEAN CORPUSCULAR HGB CONC 31 g/dl (31.0-36.0); MEAN CORPUSCULAR VOLUME 81 fL (80-96); MONOCYTES # (AUTO) 0.6 K/uL (0.1-1.30); MONOCYTES % (AUTO) 9.4 % (2.0-12.0); NEUTROPHILS # (AUTO) 5.1 K/uL (1.8-8.9); NEUTROPHILS % (AUTO) 79.3 % (43.0-81.0); PLATELET COUNT (AUTO) 232 K/uL (150-450); RED BLOOD CELL COUNT(AUTO) 3.86 MIL/uL (4.5-6.0); WHITE BLOOD COUNT (AUTO) 6.5 K/uL (4.3-11.0)
[2022-04-25 12:00] VITALS: BP 114/48
[2022-04-25 12:12] LABS: LYMPHOCYTES % (MANUAL) 8 % (16-48); NEUTROPHILS % (MANUAL) 82 (42-76)
[2022-04-25 12:13] LABS: EOSINOPHILS % (MANUAL) 2 % (0-4); MONOCYTES % (MANUAL) 8 % (0-11.0)
[2022-04-25 16:00] VITALS: BP 123/44
[2022-04-25] MEDS: ENOXAPARIN SODIUM 40 MG/0.4 ML DISP.SYRIN SQ SCH (17:09)
[2022-04-25] MEDS: diphenhydrAMINE HCL 50 MG/ML VIAL IV PRN (17:26)
[2022-04-25] MEDS ORDERED: diphenhydrAMINE HCL 50 MG/ML VIAL IV PRN (17:30)
--- NOTE | 2022-04-25 18:58 | NUR ---
RN CLOSING NOTE PATIENT IN BED AWAKE, A/O X4, ON O2 AT 5L/MIN VIA NASAL CANNULA, NO SOB/ACUTE DISTRESS NOTED, LEFT SIDED CHEST TUBE IN PLACE, DRAINING RED FLUID, 40 MLS DURING SHIFT. NO S/S OF ANY RESPIRATORY DISTRESS, NORMAL SINUS RHYTHM IN TELE MONITOR WITH HR 80S, IV ACCESS ON R HAND G #20 SALINE LOCK, PATENT AND INTACT. DIAPER NOTED, MEPLILEX IN PLACE TO PROTECT MARISEL PROMINENCES. ALL SAFETY MEASURES IN PLACE, BED LOCKED AND LOWEST POSITION, BED ALARM ON, SIDE RAILS UP X2, CALL LIGHT WITHIN REACH, WILL ENDORSE TO NIGHTSHIFT RN FOR CONTINUATION OF CARE.
[2022-04-25 20:00] VITALS: BP 123/61
[2022-04-26] VITALS: BP 120/58
[2022-04-26] MEDS: ACETAMINOPHEN 325 MG TABLET PO PRN ×2 (02:59→20:37)
[2022-04-26 04:00] VITALS: BP 130/59
[2022-04-26] MEDS: ALBUTEROL FS 2.5 MG/0.5 ML VIAL.NEB NEB SCH ×6 (04:11→22:40)
--- NOTE | 2022-04-26 06:23 | NUR ---
RN CLOSING NOTE PT IN BED AWAKE, A/O X4, POLISH SPEAKING, ON O2 AT 4L/MIN VIA NASAL CANNULA, NO SOB/ACUTE DISTRESS NOTED DURING THE NIGHT, LEFT SIDED CHEST TUBE IN PLACE, 20ML BLOODY DRAINAGE, NORMAL SINUS RHYTHM IN TELE MONITOR WITH HR 70-80 MOSTLY, IV ACCESS ON R HAND G #20 SALINE LOCK, PATENT AND INTACT, ALL NEEDS ATTENDED, NO SIGNIFICANT CHANGE IN CONDITION DURING THE NIGHT, BED LOCKED AND LOWEST POSITION, BED ALARM ON, SIDE RAILS UP X2, CALL LIGHT WITHIN REACH, WILL ENDORSE CONTINUITY OF CARE TO ONCOMING NURSE.
--- NOTE | 2022-04-26 07:36 | NUR ---
RN CLOSING NOTE PATIENT IN BED AWAKE, A/O X4, ON O2 AT 5L/MIN VIA NASAL CANNULA, NO SOB/ACUTE DISTRESS NOTED, LEFT SIDED CHEST TUBE IN PLACE, DRAINING RED FLUID. NO S/S OF ANY RESPIRATORY DISTRESS, NORMAL SINUS RHYTHM IN TELE MONITOR WITH HR 80S, IV ACCESS ON L HAND G #20 SALINE LOCK, PATENT AND INTACT. DIAPER NOTED, MEPLILEX IN PLACE TO PROTECT MARISEL PROMINENCES. ALL SAFETY MEASURES IN PLACE, BED LOCKED AND LOWEST POSITION, BED ALARM ON, SIDE RAILS UP X2, CALL LIGHT WITHIN REACH, WILL CONTINUE PLAN OF CARE AND ANTICIPATE NEEDS. Addendum: 04/26/22 at 0738 by CK KELLOGG RN HEADER SHOULD READ "RN OPENING NOTE"
[2022-04-26 08:00] VITALS: BP 104/59
[2022-04-26 12:00] VITALS: BP 115/59
[2022-04-26 16:00] VITALS: BP 121/62
[2022-04-26] MEDS: ENOXAPARIN SODIUM 40 MG/0.4 ML DISP.SYRIN SQ SCH (17:05)
--- NOTE | 2022-04-26 18:56 | NUR ---
RN CLOSING NOTE PATIENT IN BED AWAKE, A/O X4, ON O2 AT 5L/MIN VIA NASAL CANNULA, NO SOB/ACUTE DISTRESS NOTED, LEFT SIDED CHEST TUBE IN PLACE, DRAINING RED FLUID. NO S/S OF ANY RESPIRATORY DISTRESS, NORMAL SINUS RHYTHM IN TELE MONITOR WITH HR 80S, IV ACCESS ON THERESA MIDLINE 18 GAUGE, PATENT AND INTACT. DIAPER NOTED, MEPLILEX IN PLACE TO PROTECT MARISEL PROMINENCES. ALL SAFETY MEASURES IN PLACE, BED LOCKED AND LOWEST POSITION, BED ALARM ON, SIDE RAILS UP X2, CALL LIGHT WITHIN REACH. KEPT CLEAN AND DRY THROUGHOUT SHIFT, ALL DUE MEDS GIVEN. WILL ENDORSE TO NIGHTSHIFT RN FOR CONTINUATION OF CARE.
[2022-04-26 20:00] VITALS: BP 96/49
--- NOTE | 2022-04-26 20:31 | NUR ---
SURVEY CREW CHIEF OPENING NOTE PT RECEIVED IN BED, AWAKE, A&O X4, BHUTANESE-SPEAKING ONLY. PT ON 5L NC WITH NO S/S OF RESP DISTRESS, NO COUGH OR SOB, NON-LABORED AND EQUAL BREATHING, CURRENT O2SAT OF 99%. ATTACHED TO EXTERNAL MONITOR, SR WITH HR OF 79. PT NOTED TO HAVE CHEST TUBE ON LEFT SIDE OF LUNG; INTACT AND PATENT, NO S/S OF LEAKING; WILL MONITOR FOR OUTPUT DURING THE NIGHT. THERESA MIDLINE INTACT AND PATENT, FLUSHES EASILY WITH NO RESISTANCE, CURRENTLY HAS NO FLUIDS/MEDS RUNNING THROUGH IT. BED IN LOWEST POSITION, CALL LIGHT WITHIN REACH, SIDE RAILS UP X2. WILL CONTINUE TO MONITOR THROUGHOUT THE NIGHT.
--- NOTE | 2022-04-26 20:37 | NUR ---
RN NOTE PT COMPLAINS OF A 5/10 HEADACHE AND REQUESTS FOR TYLENOL. PT ADMINISTERED TYLENOL 650 MG. WILL MONITOR FOR EFFECTIVENESS.
[2022-04-27] VITALS: BP 95/49
[2022-04-27] MEDS: diphenhydrAMINE HCL 50 MG/ML VIAL IV PRN (02:57)
[2022-04-27] MEDS: ACETAMINOPHEN 325 MG TABLET PO PRN (02:57)
--- NOTE | 2022-04-27 02:57 | NUR ---
RN NOTE PT REPORTS OF 4/10 HEADACHE AND NASAL CONGESTION AND WATERY EYES. PT ADMINISTERED TYLENOL AND BENADRYL. WILL MONITOR FOR EFFECTIVENESS.
[2022-04-27] MEDS: ALBUTEROL FS 2.5 MG/0.5 ML VIAL.NEB NEB SCH ×6 (03:55→23:25)
[2022-04-27 04:00] VITALS: BP 117/55
--- NOTE | 2022-04-27 07:00 | NUR ---
MOLD CLOSER CLOSING NOTE PT REMAINS IN BED, AWAKE, SLEPT WELL DURING THE NIGHT, A&O X4, CALM, COOPERATIVE. REMAINS ON 3L NC WITH NO S/S OF RESP DISTRESS, NO SOB OR COUGH, NON-LABORED AND EQUAL BREATHING; O2SAT RANGED FROM 98%-100%. ATTACHED TO EXTERNAL MONITOR, SR WITH HR RANGING FROM 72-79. THERESA MIDLINE INTACT AND PATENT, FLUSHES EASILY WITH NO RESISTANCE, HAS NO FLUIDS/MEDS RUNNING THROUGH IT. LEFT-SIDED CHEST TUBE INTACT AND PATENT WITH NO S/S OF LEAKING, DRAINING SEROUSANGUINEOUS FLUIDS; HAD TOTAL OUTPUT OF 42 ML THROUGHOUT THE SHIFT. BED IN LOWEST POSITION, CALL LIGHT WITHIN REACH, SIDE RAILS UP X2. WILL ENDORSE TO DAYSHIFT NURSE TO CONTINUE CARE.
[2022-04-27 08:00] VITALS: BP 104/53
[2022-04-27 12:00] VITALS: BP 98/54
[2022-04-27 16:00] VITALS: BP 96/51
[2022-04-27] MEDS: ENOXAPARIN SODIUM 40 MG/0.4 ML DISP.SYRIN SQ SCH (16:36)
--- NOTE | 2022-04-27 19:30 | NUR ---
WINE BOTTLE INSPECTOR NOTE PT IN BED ASLEEP, AROUSABLE. A/O X 4 KHMER SPEAKING. NO SOB, NO DISTRESS OR DISCOMFORT NOTED. DENIES PAIN. ON TELE SR HR 81. PT REMAIN WITH LT SIDE CHEST TUBE DRAINING VIA WALL SUCTIONING. INTACT AND PATENT. COLOR OF THE FLUIDS IS SEROUS SANGUINOUS. KEPT HIM DRY AND CLEAN. ALL NEEDS ATTENDED. VSS. CONTINUE TO MONITOR HIM.
[2022-04-27 20:00] VITALS: BP 126/67
[2022-04-28] VITALS: BP 117/57
[2022-04-28] MEDS: ALBUTEROL FS 2.5 MG/0.5 ML VIAL.NEB NEB SCH ×6 (03:46→23:30)
--- NOTE | 2022-04-28 06:02 | NUR ---
CREDIT VERIFICATION CLERK NOTE CT DRAINING WELL, ON 10 ML OUTPUT NOTED FOR FLOAT NURSE COLOR SEROSANGUINEOUS. NO DISTRESS OR DISCOMFORT NOTED. DENIES PAIN. ON TELE SR. ENDORSE TO NURSE JOSUE TO CONTINUE TO CARE.
--- NOTE | 2022-04-28 07:30 | NUR ---
RN OPENING NOTE PATIENT IS IN BED AWAKE, ALERT ORIENTED X 4. WITH O2 VIA NASAL CANNULA AT 3L/MIN. SINUS RHYTHM ON QUILLER TENDER. WITH CHEST TUBE ON LEFT CHEST WALL DRAINING TO A SEROUS FLUID. WITH LEFT UPPER ARM MIDLINE GAUGE 18 SALINE LOCK INTACT AND PATENT. DENIES PAIN, BREATHING UNLABORED, AND NOT IN ANY FORM OF DISTRESS. BED IS LOCKED IN LOWEST POSITION, 3 SIDE RAILS UP,C ALL LIGHT WITHIN REACH. WILL CONTINUE TO MONITOR THROUGHOUT SHIFT.
[2022-04-28 08:00] VITALS: BP 113/61
[2022-04-28] MEDS: ACETAMINOPHEN 325 MG TABLET PO PRN (09:38)
[2022-04-28 12:00] VITALS: BP 121/62
[2022-04-28 16:00] VITALS: BP 116/71
[2022-04-28] MEDS: ENOXAPARIN SODIUM 40 MG/0.4 ML DISP.SYRIN SQ SCH (16:49)
--- NOTE | 2022-04-28 18:52 | NUR ---
RN CLOSING NOTE PATIENT IS RESTING COMFORTABLY IN BED AND REMAINED STABLE THROUGHOUT SHIFT. DENIES PAIN, BREATHING UNLABORED,AND NOT IN ANY FORM OF DISTRESS. ON O2 VIA NASAL CANNULA AT 3L/MIN, SATTING AT 95%. CHEST TUBE INTACT AND ATTACHED TO SUCTION, WITH 30 CC OUTPUT. LEFT UPPER ARM MIDLINE INTACT AND PATENT. BED IS LOCKED IN LOWEST POSITION, 3 SIDE RAILS UP, CALL LIGHT WITHIN REACH. WILL ENDORSE TO DISCOVERY GUIDE NURSE.
--- NOTE | 2022-04-28 19:15 | NUR ---
RN NOTES: RECEIVED AWAKE ON BED, SON PRESENT AT PATIENT BED SIDE, A/OX4 WITH PERIODS OF FORGETFULNESS, FRENCH SPEAKING, ON TELE MONITOR SR-79, ON BED REST, NON LABORED BREATHING, ON O2 AT 3L/MIN VIA NC SPO2-94%,THERESA MIDLINE INSITE, CHEST TUBE ON LEFT SIDE OF THE CHEST, WITH CONTINUOUS SUCTION. -FALL, SAFETY AND ASPIRATION PRECAUTION OBSERVED.
[2022-04-28 20:00] VITALS: BP 119/61
--- NOTE | 2022-04-28 23:16 | NUR ---
RN NOTES: HAD SMALL BM, CLEAN AND CHANGE,KEPT CALL LIGHT WITHIN EASY REACH.
[2022-04-29] VITALS: BP 101/83
[2022-04-29] MEDS: ALBUTEROL FS 2.5 MG/0.5 ML VIAL.NEB NEB SCH ×6 (03:30→23:35)
--- NOTE | 2022-04-29 03:54 | NUR ---
RN NOTES"; AWAKE HE WANTS TO BE CHANGE AGAIN, NO BM, EXPLAINED TO HIM WE WILL CHANGE HIM LATER, ROOMMATE HELP TO INTERPRET IN LITHUANIAN.
[2022-04-29 04:00] VITALS: BP 106/80
[2022-04-29] MEDS: ACETAMINOPHEN 325 MG TABLET PO PRN ×3 (05:43→13:53)
--- NOTE | 2022-04-29 07:49 | NUR ---
RN NOTES: AWAKE IN BETWEEN, GIVEN SNACKS, TYLENOL GIVEN AT 0542, CLEAN AND CHNAGE, ON TELE MONITOR SR-84, THERESA -ML INTACT, LEFT SIDED CHEST WALL ATTACHED ON CONTINUOS SUCTION , DRAINAGE-10ML, NO LABS FOR TODAY, ENDORSED FOR CONTINUITY OF CARE.
[2022-04-29 08:00] VITALS: BP 103/57
[2022-04-29 12:00] VITALS: BP 99/54
[2022-04-29 16:00] VITALS: BP 99/54
--- NOTE | 2022-04-29 18:03 | NUR ---
CAPE VERDEAN SPEAKING PATIENT ON 2 L NC IN A STABLE STATE W/O DISTRESS. PATIENT TOLERATE TREATMENT WELL. Addendum: 04/29/22 at 1806 by JOJO OROURKE RT Amended: Links added.
[2022-04-29] MEDS: ENOXAPARIN SODIUM 40 MG/0.4 ML DISP.SYRIN SQ SCH (18:54)
--- NOTE | 2022-04-29 19:10 | NUR ---
RN OPENING NOTES RECEIVED PATIENT ON BED, A/O 2-3, VERBALLY RESPONSIVE, ARABIC SPEAKING. ON NASAL CANULA @ 2LPM SATING AT 97%. RESPIRATORY EVEN AND UNLABORED, NO SOB NOTED. AFEBRILE, NO S/S OF DISTRESS NOTED. PATIENT THERESA MID LINE, FLUSHED WITH NS, NO S/S OF INFILTRATION NOTED AT SITE. NOTED WITH LEFT SIDED CHEST TUBE, CLAMPED, INTACT, NO BLEEDING AROUND THE SITE. ALL SAFETY MEASURE PROVIDED. BED IN LOWEST POSITION, LOCKED. BED ALARM ARMED. CONTINUE TO MONITOR.
[2022-04-29 20:00] VITALS: BP 115/65
--- NOTE | 2022-04-29 20:28 | NUR ---
RT NOTE RECEIVED PT ON 2L NC. NO RESP DISTRESS OR SOB NOTED. TOLERATED BREATHING TX. Addendum: 04/29/22 at 2028 by Jerzy Hung RT Amended: Links added.
[2022-04-30] VITALS: BP 97/52
[2022-04-30] MEDS: ACETAMINOPHEN 325 MG TABLET PO PRN ×3 (01:09→20:35)
[2022-04-30] MEDS: ALBUTEROL FS 2.5 MG/0.5 ML VIAL.NEB NEB SCH ×6 (02:37→23:52)
[2022-04-30 04:00] VITALS: BP 101/60
--- NOTE | 2022-04-30 07:07 | NUR ---
RN NOTES PATIENT SLEEPING ON BED, REMAIN STABLE THROUGH OUT THE SHIFT. RESPIRATORY EVEN AND UNLABORED, NO SOB NOTED. AFEBRILE, NO S/S OF DISTRESS NOTED. LEFT SIDE CHEST TUBE, CLAMPED, INTACT, NO BLEEDING AROUND THE SITE. ALL SAFETY MEASURE PROVIDED. BED IN LOWEST POSITION, LOCKED. BED ALARM ARMED. REPORT GIVEN TO MORNING SHIFT NURSE FOR CONTINUITY OF CARE.
--- NOTE | 2022-04-30 07:30 | NUR ---
RN OPENING NOTES RECEIVED PATIENT ON BED, A/O 2-3, VERBALLY RESPONSIVE, LATVIAN SPEAKING. ON NASAL CANULA @ 2LPM SATING AT 94%. RESPIRATORY EVEN AND UNLABORED, NO SOB NOTED. AFEBRILE, NO S/S OF DISTRESS NOTED. PATIENT THERESA MID LINE, FLUSHED WITH NS, NO S/S OF INFILTRATION NOTED AT SITE. NOTED WITH LEFT SIDED CHEST TUBE, CLAMPED, INTACT, NO BLEEDING AROUND THE SITE. ALL SAFETY MEASURE PROVIDED. BED IN LOWEST POSITION, LOCKED. BED ALARM ARMED. WILL CONTINUE PLAN OF CARE.
[2022-04-30 08:00] VITALS: BP 101/60
[2022-04-30 14:27] VITALS: BP 104/59
[2022-04-30 16:00] VITALS: BP 90/50
[2022-04-30] MEDS: ENOXAPARIN SODIUM 40 MG/0.4 ML DISP.SYRIN SQ SCH (17:29)
[2022-04-30] MEDS: ENSURE ENLIVE CHOC 237 ML CAN PO SCH (17:29)
--- NOTE | 2022-04-30 18:41 | NUR ---
RN CLOSING NOTES RECEIVED PATIENT ON BED, A/O 2-3, VERBALLY RESPONSIVE, GREEK SPEAKING. ON NASAL CANULA @ 2LPM SATING AT 95%. RESPIRATORY EVEN AND UNLABORED, NO SOB NOTED. AFEBRILE, NO S/S OF DISTRESS NOTED. PATIENT THERESA MID LINE, FLUSHED WITH NS, NO S/S OF INFILTRATION NOTED AT SITE. NOTED WITH LEFT SIDED CHEST TUBE, CLAMPED, INTACT, NO BLEEDING AROUND THE SITE. ALL SAFETY MEASURE PROVIDED. BED LOCKED IN LOWEST POSITION, CALL LIGHT WITHIN REACH. WILL ENDORSE TO NEXT NURSE ON DUTY FOR CONTINUITY OF CARE.
[2022-04-30 20:00] VITALS: BP 138/56
--- NOTE | 2022-04-30 20:00 | NUR ---
RN NOTE RECEIVED PT, AWAKE AOX3 WITH FAMILY AT BEDSIDE. PT COMPLAINED OF PAIN ON LEFT LATERAL CHEST, CHEST TUBE SITE. CHEST TUBE CLAMPED. DENIES ANY SOB, ON 2L O2 VIA NC. NOT IN ANY DISTRESS. WILL CONTINUE TO MONITOR.
[2022-05-01] VITALS: BP 122/65
--- NOTE | 2022-05-01 02:57 | NUR ---
RN NOTE PT SLEEPING, AROUSES EASILY. NOT IN ANY DISTRESS. DENIES PAIN. ENDORSED TO [facility].
[2022-05-01] MEDS: ALBUTEROL FS 2.5 MG/0.5 ML VIAL.NEB NEB SCH ×6 (03:24→23:31)
[2022-05-01 04:00] VITALS: BP 140/70
--- NOTE | 2022-05-01 06:48 | NUR ---
RN CLOSING NOTES PATIENT IN BED SLEEPING BUT EASILY AROUSABLE, A/O 2-3, VERBALLY RESPONSIVE, MONGOLIAN SPEAKING. ON 2L/MIN VIA N/C AND PT TOLERATED WELL. O2 SAT 93%. BREATHING EVEN AND UNLABORED, IV ACCESS ON THERESA MID LINE INTACT AND PATENT. NO S/S OF INFILTRATIONS. NOTED WITH LEFT SIDED CHEST TUBE, CLAMPED AND INTACT, NO BLEEDING NOTED. NO C/O PAIN OR DISCOMFORT. NO ACUTE DISTRESS. ALL SAFETY MEASURE IN PLACE. BED IN LOWEST POSITION AND LOCKED. SIDE RAILS UP X3, PLACE CALL LIGHT WITHIN REACH. WILL ENDORSE TO MORNING SHIFT NURSE.
[2022-05-01 08:00] VITALS: BP 125/62
[2022-05-01] MEDS: ENSURE ENLIVE CHOC 237 ML CAN PO SCH ×2 (10:32→18:35)
[2022-05-01 12:00] VITALS: BP 93/49
[2022-05-01] MEDS: ACETAMINOPHEN 325 MG TABLET PO PRN (14:49)
[2022-05-01 16:00] VITALS: BP 101/54
[2022-05-01] MEDS: ONDANSETRON HCL/PF 4 MG/2 ML VIAL IVP PRN (17:15)
[2022-05-01] MEDS: ENOXAPARIN SODIUM 40 MG/0.4 ML DISP.SYRIN SQ SCH (19:09)
--- NOTE | 2022-05-01 19:50 | NUR ---
RN OPENING NOTES RECEIVED PATIENT IN BED, AWAKE, A/O 2-3, VERBALLY RESPONSIVE, MACEDONIAN SPEAKING. ON 2L/MIN VIA N/C AND PT TOLERATED WELL. BREATHING EVEN AND UNLABORED, IV ACCESS ON THERESA MID LINE INTACT AND PATENT. NO S/S OF INFILTRATIONS. NOTED WITH LEFT SIDED CHEST TUBE, CLAMPED AND INTACT, NO BLEEDING NOTED. NO C/O PAIN OR DISCOMFORT. NO ACUTE DISTRESS. FAMILY MEMBERS AT BEDSIDE. ALL SAFETY MEASURE IN PLACE. BED IN LOWEST POSITION AND LOCKED. SIDE RAILS UP X3, PLACE CALL LIGHT WITHIN REACH. WILL CONTINUE TO MONITOR
[2022-05-01 20:00] VITALS: BP 96/47
[2022-05-02] VITALS: BP 100/55
[2022-05-02 04:00] VITALS: BP 99/52
[2022-05-02] MEDS: ALBUTEROL FS 2.5 MG/0.5 ML VIAL.NEB NEB SCH ×6 (04:13→23:36)
--- NOTE | 2022-05-02 06:37 | NUR ---
RN CLOSING NOTES PATIENT IN BED SLEEPING BUT EASILY AROUSABLE, A/O 2-3, VERBALLY RESPONSIVE, ARMENIAN SPEAKING. ON 2L/MIN VIA N/C AND PT TOLERATED WELL. O2 SAT 97%. BREATHING EVEN AND UNLABORED, IV ACCESS ON THERESA MID LINE INTACT AND PATENT. NO S/S OF INFILTRATIONS. NOTED WITH LEFT SIDED CHEST TUBE, CLAMPED AND INTACT, NO BLEEDING NOTED. NO C/O PAIN OR DISCOMFORT. NO ACUTE DISTRESS. ALL SAFETY MEASURE IN PLACE. BED IN LOWEST POSITION AND LOCKED. SIDE RAILS UP X3, PLACE CALL LIGHT WITHIN REACH. WILL ENDORSE TO MORNING SHIFT NURSE
--- NOTE | 2022-05-02 07:30 | NUR ---
RN OPENING NOTE PATIENT IS IN BED, AWAKE, ALERT ORIENTED X 3. ON 2L OXYGEN VIA NASAL CANNULA. CHEST TUBE INTACT AND CLAMPED. LEFT UPPER ARM MIDLINE INTACT AND PATENT. DENIES PAIN, BREATHING UNLABORED, AND NOT IN ANY FORM OF DISTRESS. BED IS LOCKED IN LOWEST POSITION, 3 SIDE RAILS UP, CALL LIGHT WITHIN REACH. WILL CONTINUE TO MONITOR THROUGHOUT SHIFT.
[2022-05-02 08:00] VITALS: BP 89/47
[2022-05-02] MEDS: ENSURE ENLIVE CHOC 237 ML CAN PO SCH ×2 (08:25→17:30)
--- NOTE | 2022-05-02 10:31 | NUR ---
dr. martínez seen and evaluated pt and ordered for icu nurse to change change chest tube to heimlich valve.nursing sup made aware.
--- NOTE | 2022-05-02 11:14 | NUR ---
icu nurse ke connected chest tube to heimlich valve,dressing changed on chest tube site,pt. tolerated procedure,will do cxr in [address] martínez.
[2022-05-02 12:00] VITALS: BP 90/49
[2022-05-02] MEDS ORDERED: MIDODRINE HCL (5MG) 5 MG TABLET PO PRN (12:00)
[2022-05-02] MEDS: ACETAMINOPHEN 325 MG TABLET PO PRN (14:26)
[2022-05-02 16:00] VITALS: BP 109/56
[2022-05-02] MEDS: ENOXAPARIN SODIUM 40 MG/0.4 ML DISP.SYRIN SQ SCH (18:13)
--- NOTE | 2022-05-02 18:56 | NUR ---
RN CLOSING NOTE PATIENT IS STABLE THROUGHOUT SHIFT. TOLERATES 2L/MIN OXYGEN VIA NASAL CANNULA. LEFT UPPER ARM MIDLINE INTACT AND PATENT. CHEST TUBE IS INTACT AND COVERED WITH DRY DRESSING, CONNECTED TO HEIMLICH VALVE. DENIES PAIN, BREATHING UNLABORED AND NOT IN ANY FORM OF DISTRESS. ALL HOSPITAL SAFETY PRECAUTIONS IN PLACE. WILL ENDORSE TO STRETCHER OPERATOR NURSE..
[2022-05-02 20:59] VITALS: BP 101/50
[2022-05-03 00:27] VITALS: BP 98/51
[2022-05-03] MEDS: ALBUTEROL FS 2.5 MG/0.5 ML VIAL.NEB NEB SCH ×6 (03:53→23:43)
[2022-05-03 05:28] VITALS: BP 97/54
--- NOTE | 2022-05-03 07:08 | NUR ---
END OF SHIFT REPORT Patient in bed, A/O x3. On supplemental Oxygen at 2L NC, Oxygen sat in high 90's. Left chest previously with chest tube, now on Heimlich valve, no output. Site with dry and clean dressing. Patient ambulated to the bathroom with standby assist, denies pain. THERESA midline intact. No IVF, no IV/PO abx. Afebrile during the shift. Care endorsed to HOMERO Bains.
--- NOTE | 2022-05-03 07:22 | NUR ---
RN OPEN NOTE PATIENT IS ALERT ORIENTED TIMES 3 , URUGUAYAN SPEAKING TOLERATES 2L/MIN OXYGEN VIA NASAL CANNULA. NO SIGHS OF DISTRESS,LEFT UPPER ARM MIDLINE INTACT AND PATENT. CHEST TUBE IS INTACT AND COVERED WITH DRY DRESSING, CONNECTED TO HEIMLICH VALVE. DENIES PAIN, BREATHING UNLABORED ALL SAFETY MEASURES IS IN PLACE ,BED IS AT LOWEST POSITION, SIDE RAILS ARE UP , CALL LIGHT WITHIN REACH, WILL CONTINUE TO FALLOW POC.
[2022-05-03 08:00] VITALS: BP 125/75
[2022-05-03] MEDS: ENSURE ENLIVE CHOC 237 ML CAN PO SCH ×2 (08:46→17:16)
[2022-05-03 12:00] VITALS: BP 97/65
[2022-05-03] MEDS: ONDANSETRON HCL/PF 4 MG/2 ML VIAL IVP PRN (14:45)
[2022-05-03 16:00] VITALS: BP 115/60
[2022-05-03] MEDS: ENOXAPARIN SODIUM 40 MG/0.4 ML DISP.SYRIN SQ SCH (17:42)
--- NOTE | 2022-05-03 18:39 | NUR ---
RN CLOSING NOTE PATIENT IN BED ALERT , ORIENTED TIMES 2 VERBALLY RESPONSIVE, HUNGARIAN SPEAKING. ON 2L/MIN VIA N/C AND PT TOLERATED WELL. O2 SAT 97%. BREATHING EVEN AND UNLABORED, IV ACCESS ON THERESA MID LINE INTACT AND PATENT. NO S/S OF INFILTRATIONS. NOTED WITH LEFT SIDED CHEST TUBE, CLAMPED AND INTACT, NO BLEEDING NOTED. NO C/O PAIN OR DISCOMFORT. NO ACUTE DISTRESS. ALL SAFETY MEASURE IN PLACE. BED IN LOWEST POSITION AND LOCKED. SIDE RAILS UP X3, PLACE CALL LIGHT WITHIN REACH. WILL ENDORSE TO MORNING SHIFT NURSE
[2022-05-03 20:00] VITALS: BP 96/42
--- NOTE | 2022-05-03 20:00 | NUR ---
BUS GIRL OPEN NOTE PATIENT IS ALERT ORIENTED TIMES 3 , GUYANESE SPEAKING FAMILY AT BEDSIDE UPDATED WITH PTS CONDITION PTS 2L/MIN OXYGEN VIA NASAL CANNULA.SATING 94% NO SOB NO DISTRESS NOTED, V/S STABLE AFEBRILE .LEFT UPPER ARM MIDLINE INTACT AND PATENT. LEFT CHEST TUBE IS INTACT AND COVERED WITH DRY DRESSING, CONNECTED TO HEIMLICH VALVE. DENIES PAIN, BREATHING UNLABORED ALL SAFETY MEASURES IS IN PLACE ,BED IS AT LOWEST POSITION, SIDE RAILS ARE UP , CALL LIGHT WITHIN REACH, WILL CONTINUE TO MONITOR PTS .KEPT PTS CLEAN DRY AND COMFORTABLE.
--- NOTE | 2022-05-03 20:57 | NUR ---
RT NOTE RECEIVED ON [facility] VENT WITH SETTINGS PER MD ORDER. NANNY CAREGIVER DONE. SUCTIONED AND MONITORED PRN. ALARMS ON AND FUNCTIONING PROPERLY. VENT PLUGGED INTO RED OUTLET. SPARE TRACH AND AMBU BAG AT HEAD OF BED. NO S/S OF SOB OR RESPIRATORY DISTRESS NOTED AT THIS TIME Addendum: 05/04/22 at 0144 by GABO CHÁVEZ RT charted this note for wrong pt.
[2022-05-04] VITALS: BP 102/54
[2022-05-04] MEDS: ALBUTEROL FS 2.5 MG/0.5 ML VIAL.NEB NEB SCH ×5 (03:26→19:29)
[2022-05-04 04:00] VITALS: BP 101/48
--- NOTE | 2022-05-04 07:31 | NUR ---
SPORTS MANAGEMENT INTERNSHIP CLOSING NOTES: PATIENT REMAINS IN BED AWAKE ON 2 LITERS OF 02 VIA NC SATING 100% BREATHING EVEN AND UNLABORED, NO S/S OF SOB, NO RESPIRATORY DISTRESS NOTED. IV SITE ON LFA #20 KEPT DRY AND CLEAN. HOB ELEVATED AT 30 DEGREES, BED LOCKED AND IN LOWEST POSITION, SR UP, CALL LIGHT WITHIN REACH. WILL ENDORSE TO AM SHIFT NURSE FOR CONTINUITY OF CARE.
[2022-05-04 08:00] VITALS: BP 102/53
[2022-05-04] MEDS: ENSURE ENLIVE CHOC 237 ML CAN PO SCH ×2 (08:00→17:05)
[2022-05-04] MEDS: ACETAMINOPHEN 325 MG TABLET PO PRN (10:04)
[2022-05-04 12:00] VITALS: BP 114/54
[2022-05-04 16:00] VITALS: BP 111/52
[2022-05-04] MEDS: ENOXAPARIN SODIUM 40 MG/0.4 ML DISP.SYRIN SQ SCH (17:31)
--- NOTE | 2022-05-04 19:02 | NUR ---
CLOSING DATE: PATIENT HAD UNEVENTFUL SHIFT. PATIENT WAS CHECKED HOURLY BY THE NURSE AND THE NURSE STAFF.
--- NOTE | 2022-05-04 19:20 | NUR ---
RN NOTES RECEIVED PT FOR CONTINUITY OF CARE. PATIENT A/OX3-4; MALAWIAN SPEAKING IN NO S/SX OF ACUTE DISTRESS AT THIS TIME; CURRENTLY ON 2L OF 02 VIA NC; WITH 02 SAT >95% AT THIS TIME. PT'S FAMILY AT THE BEDSIDE AT THIS TIME. WILL ENSURE SAFETY MEASURES WITHIN THE SHIFT. PATIENT BED ALARM IS ON. HEAD OF BED ELEVATED. BED IS LOCKED, IN LOWEST POSITION AND SIDE RAILS UP. CALL LIGHT WITHIN REACH OF THE PATIENT. WILL CONTINUE TO MONITOR AND REASSESS FOR ANY CHANGES AND WILL CARRY OUT ANY ONGOING AND ACTIVE MD ORDER.
--- NOTE | 2022-05-04 19:57 | NUR ---
RT Pt recvd on 2 lpm NC, neb tx given and kunal well. SpO2 >92%. Family at bedside.
[2022-05-04 20:00] VITALS: BP 92/56
[2022-05-05] VITALS: BP 111/52
[2022-05-05] MEDS: ALBUTEROL FS 2.5 MG/0.5 ML VIAL.NEB NEB SCH ×7 (00:02→22:36)
[2022-05-05 04:00] VITALS: BP 110/55
--- NOTE | 2022-05-05 04:00 | NUR ---
RN NOTES PATIENT REMAINED TO BE IN NO SIGNS OF ACUTE RESPIRATORY DISTRESS , SAFE ENVIRONMENT MAINTAINED FOR PT. AM PATIENT CARE DONE WILL CONTINUE TO MONITOR AND REASSESS FOR ANY CHANGES THROUGHOUT THE SHIFT.
--- NOTE | 2022-05-05 06:49 | NUR ---
RN CLOSING NOTE: PATIENT REMAINS IN ROOM IN NO SIGNS OF RESPIRATORY DISTRESS, PATIENT STILL ON 2L OF 02 VIA NC ;TOLERATING WELL SATURATING @ >95% SP02. POSSIBLE DC WITH CHEST TUBE INTACT. SAFETY MEASURES IMPLEMENTED, BED IN LOWEST POSITION, LOCKED, SIDE RAILS UP, CALL LIGHT WITHIN REACH. ALL NEEDS AND ORDERS ADDRESSED DURING THE SHIFT. IV ACCESS MAINTAINED INTACT, SECURED AND FLUSHING WELL. ALL DUE MEDS GIVEN ORDERED & SCHEDULED ; PATIENT TOLERATED WELL. PATIENT KEPT CLEAN AND COMFORTABLE WITHIN THE SHIFT. PATIENT ENDORSED TO INCOMING SHIFT RN WITH STABLE VITAL SIGN AND FOR CONTINUITY OF CARE.
[2022-05-05 08:00] VITALS: BP 97/59
--- NOTE | 2022-05-05 08:00 | NUR ---
EVE/RN PT IS RESTING ON 2L N/C .SAT O2-97%.HAS LEFT SIDE CHEST TUBE NO DRAINAGE.V/S STABLE AFEBRILE.NO PAIN REPORTED AT THIS TIME.LEFT UPPER ARM MIDLINE NOT WORKING.PT IS WAITING FOR DISCHARGE.
[2022-05-05] MEDS: ENSURE ENLIVE CHOC 237 ML CAN PO SCH ×2 (08:33→17:17)
--- NOTE | 2022-05-05 10:41 | NUR ---
PATIENT FOUND ON 2 L NC. PATIENT IS STABLE AND AWAKE NO DISTRESS NOTED. PATIENT TOLERATE TX WELL AND EKG PERFORMED. Addendum: 05/05/22 at 1044 by JOJO OROURKE RT Amended: Links added.
[2022-05-05 12:00] VITALS: BP 122/69
--- NOTE | 2022-05-05 12:00 | NUR ---
EVE/RN PT HR 160-180 BPM. A-FIB..EKG STAT DONE.A-FIB WITH RVR. DR RAZO NOTIFIED.
[2022-05-05] MEDS ORDERED: AMIODARONE 150 MG in IV D5W 100 ML IV ONE (12:30)
[2022-05-05] MEDS: AMIODARONE 450 MG in IV D5W 241 ML IV PRN ×2 (13:05→23:31)
[2022-05-05] MEDS: ACETAMINOPHEN 325 MG TABLET PO PRN (13:50)
--- NOTE | 2022-05-05 14:15 | NUR ---
ICU/RN DR RAZO SEEN THE PT.AMIODARONE DRIP ORDERED.PT NEED TO STAY IN [facility].NO DISCHARGE.NEED NEW MIDLINE.AUTOMOTIVE FLEET SUPERVISOR NOTIFIED. PT C/O OF PAIN .TYLENOL PO GIVEN ORDERED.
[2022-05-05 16:00] VITALS: BP 100/58
[2022-05-05] MEDS: ENOXAPARIN SODIUM 40 MG/0.4 ML DISP.SYRIN SQ SCH (17:19)
--- NOTE | 2022-05-05 19:18 | NUR ---
RN NOTES RECEIVED PT FOR CONTINUITY OF CARE. PATIENT A/OX3-4; BHUTANESE SPEAKING IN NO S/SX OF ACUTE DISTRESS AT THIS TIME; CURRENTLY ON 2L OF 02 VIA NC; WITH 02 SAT >95% AT THIS TIME. PT'S FAMILY AT THE BEDSIDE AT THIS TIME. IV ACCESS ON THE R UA MIDLINE; PATENT, INTACT AND FLUSHING WELL. RECEIVED WITH RUNNING AMIO DRIP WITH A DOSE RATE 1MG/MIN STARTED 1700, WILL CHANGE DOSE RATE TO 0.5MG/MIN BY 2300, RUNNING AND MONITORED PER PROTOCOL. WITH CHEST TUBE WITH HEIMLICH VALVE IN PLACE. WILL ENSURE SAFETY MEASURES WITHIN THE SHIFT. PATIENT BED ALARM IS ON. HEAD OF BED ELEVATED. BED IS LOCKED, IN LOWEST POSITION AND SIDE RAILS UP. CALL LIGHT WITHIN REACH OF THE PATIENT. WILL CONTINUE TO MONITOR AND REASSESS FOR ANY CHANGES AND WILL CARRY OUT ANY ONGOING AND ACTIVE MD ORDER.
--- NOTE | 2022-05-05 19:19 | NUR ---
RT Pt recvd on 4 lpm NC, neb tx given and kunal well. . Spo2 >92%. No SOB or respiratory distress noted at this time.
[2022-05-05 20:00] VITALS: BP 126/59
[2022-05-06] VITALS: BP 118/70
[2022-05-06 04:00] VITALS: BP 121/65
[2022-05-06] MEDS: ALBUTEROL FS 2.5 MG/0.5 ML VIAL.NEB NEB SCH ×3 (04:10→10:58)
[2022-05-06] MEDS ORDERED: HYDROMORPHONE 1 MG/1 ML DISP.SYRIN IV PRN (06:30)
--- NOTE | 2022-05-06 06:39 | NUR ---
RN CLOSING NOTE: PATIENT REMAINS IN ROOM IN NO SIGNS OF RESPIRATORY DISTRESS, PATIENT STILL ON 2L OF 02 VIA NC ;TOLERATING WELL SATURATING @ >95% SP02. STILL WITH RUNNING AMIO DRIP WITH DOSE RATE OF 0.5MG/MIN, RUNNING PER PROTOCOL. SAFETY MEASURES IMPLEMENTED, BED IN LOWEST POSITION, LOCKED, SIDE RAILS UP, CALL LIGHT WITHIN REACH. ALL NEEDS AND ORDERS ADDRESSED DURING THE SHIFT. IV ACCESS MAINTAINED INTACT, SECURED AND FLUSHING WELL. ALL DUE MEDS GIVEN ORDERED & SCHEDULED ; PATIENT TOLERATED WELL. PATIENT KEPT CLEAN AND COMFORTABLE WITHIN THE SHIFT. PATIENT ENDORSED TO INCOMING SHIFT RN WITH STABLE VITAL SIGN AND FOR CONTINUITY OF CARE.
--- NOTE | 2022-05-06 07:44 | NUR ---
EVE RN NOTE: PATIENT IN BED, IN NO SIGNS OF RESPIRATORY DISTRESS, PATIENT STILL ON 2L OF 02 VIA NC ;TOLERATING WELL NO SOB AT THIS TIME WITH RUNNING AMIO DRIP WITH DOSE RATE OF 0.5MG/MIN, RUNNING PER PROTOCOL. SAFETY MEASURES IMPLEMENTED, BED IN LOWEST POSITION, LOCKED, SIDE RAILS UP, CALL LIGHT WITHIN REACH. ALL NEEDS ATTENDED,. IV ACCESS MAINTAINED INTACT, SECURED AND FLUSHING WELL. ALL DUE MEDS GIVEN ORDERED & SCHEDULED , PATIENT TOLERATED WELL. WITH CHEST TUBE TO GRAVITY ON LT SIDE ON CHEST NO DRAINAGE NOTED AT THIS TIME WILL MONITOR
[2022-05-06] MEDS: ENSURE ENLIVE CHOC 237 ML CAN PO SCH (07:49)
[2022-05-06 08:56] VITALS: BP 98/53
--- NOTE | 2022-05-06 09:58 | NUR ---
telecom coordinator note all needs attended, chest x ray done as ordered
--- NOTE | 2022-05-06 12:00 | NUR ---
EV[facility] RN NOTE SEEN BY DR RAZO STATED THAT WILL CHANGE TO PO AMIODARONE , AWARE THAT DRIP AMIODARONE WILL BE DONE BY 5 PM
[2022-05-06] MEDS: ACETAMINOPHEN 325 MG TABLET PO PRN (12:55)
[2022-05-06 13:24] VITALS: BP 100/55
[2022-05-06] MEDS ORDERED: METOPROLOL TARTRATE 25 MG TABLET PO SCH (15:00)
--- NOTE | 2022-05-06 15:10 | NUR ---
telecommunications sales representative note seen by dr lyndon miller to stop amiodarone drip will be discharge with home health Addendum: 05/06/22 at 1513 by BI LONGORIA RN called to case monitor about home health to monitor chest tube to drainage bag
[2022-05-06] MEDS ORDERED: METO25TA6 PO (15:17)
[2022-05-06 15:27] VITALS: BP 109/58
--- NOTE | 2022-05-06 16:30 | NUR ---
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 Tuan Gutiérrez and f\u with primary care doctor and assisted home [facility]ph[facility] for chest tube instruction and monitoring jocy foster care case manager gave phone number , also instructed to take new Meds and possible side effects, teaching done about chest tube, keep dressing intact, monitor if dressing intact and not loose , also monitor drainage bag attached to chest tube , monitor for drainage mid line on rtn upper arm removed dry dressing placed no bleeding noted , tele monitor removed
--- NOTE | 2022-05-06 16:45 | NUR ---
telephone lineman note taken to lobby on w\c, son at bedside ,went home with stable condition
== END 2022-05-06 17:00 | disposition home health service (06) | DRG 199 ==
LOC: ER 13:40 → TELE1 17:07 → TELE-TD 05-05 13:57 → TELE1 05-06 14:25
PROVIDERS: ADMIT Internal Medicine; ATTEND Internal Medicine
PROC: 0W9B30Z Drainage of Left Pleural Cavity with Drainage Device, Percutaneous Approach (ICD-10-PCS; 2022-04-24)
PROC: 05H633Z Insertion of Infusion Device into Left Subclavian Vein, Percutaneous Approach (ICD-10-PCS; principal; 2022-04-26)
PROC: B547ZZA Ultrasonography of Left Subclavian Vein, Guidance (ICD-10-PCS; 2022-04-26)
DX: J93.0 Spontaneous tension pneumothorax (principal); J96.01 Acute respiratory failure with hypoxia; E87.1 Hypo-osmolality and hyponatremia; R64 Cachexia; J98.11 Atelectasis; Z68.1 Body mass index [BMI] 19.9 or less, adult; E86.1 Hypovolemia; Z87.891 Personal history of nicotine dependence; I48.91 Unspecified atrial fibrillation; Z79.899 Other long term (current) drug therapy; Z20.822 Contact with and (suspected) exposure to COVID-19; D64.9 Anemia, unspecified; I10 Essential (primary) hypertension; J43.9 Emphysema, unspecified; J93.9 Pneumothorax, unspecified
CPT/HCPCS: 36410; 36415; 36600; 71045-TC; 80048-TC; 80053-TC; 80076-TC; 83605-TC; 83735-TC; 84100-TC; 84484-TC; 85025-TC; 85730-TC; 87040-TC; 87081-TC; 94799-TC; A4217; A6253; A6403; G0378; G0500; J0282; J1200; J1650; J2405; J2704; J7030; J7042; J7050; J7060